=== PATIENT | female | born 1995 | race Hispanic/Latino ===

== ENCOUNTER 2017-11-17 05:53 | Day surgery (SDC) | payer OTHER ==
[2017-11-14 09:57] VITALS: BMI 29.2
[2017-11-17] MEDS ORDERED: cefOXitin IV 1 gm in Dextrose 1 GM/50 ML BAG IVPB ONE (07:31)
[2017-11-17] MEDS ORDERED: cefOXitin IV 2 gm in Dextrose 0 GM/0 ML BAG IVPB ONE (07:31)
[2017-11-17] MEDS ORDERED: Bupivacaine 0.25% 20 ML INJ IJ ONE (07:59)
[2017-11-17] MEDS ORDERED: Midazolam 2 MG/2 ML VIAL ONE (08:16)
[2017-11-17] MEDS ORDERED: Propofol 10 mg/ml Inj (20 ML) ONE (08:16)
[2017-11-17] MEDS: ceFAZolin IV 1 gm in Dextrose 2 GM/100 ML BAG IVPB ONE ×2 (08:30→08:50)
[2017-11-17] MEDS ORDERED: Rocuronium 10 mg/ml (5 ml) ONE (08:36)
[2017-11-17] MEDS ORDERED: Succinylcholine Chloride 20 mg/ml Syr (5 ml) IV ONE (08:36)
[2017-11-17] MEDS ORDERED: Neostigmine Methylsulfate 3mg/3ml Syringe IV ONE (10:01)
--- NOTE | 2017-11-17 10:10 | PCM.SURG1 ---
Surgeon's Initial Post Op Note - Surgeon's Notes Surgeon: Delia Mccormick MD Biomedical Instrument Technician: Gavin Phipps MD Type of Anesthesia: General Endo, General LMA Pre-Operative Diagnosis: Chronic Pelvic Pain, Right ovarian cyst, Lost Intrauterine device Operative Findings: 10 week size uteurs, noral utuers, rihgt ovarian cyst with endometriotic implant in posteior cul de sac, iud strings in cervical canal, bowle adesions left side wall and right tubal adhesion to uterine wall Post-Operative Diagnosis: same as above, endometrisoos, adhesions Operation Performed: Operative laparascopy, right ovariany cystectomy, excision and ablation of enodmetriosis, hystersoic dilation , llysis of adhesions Specimen/Specimens Removed: right ovarian cyst, enodmetriotic implant biopoys from cul de sac Estimated Blood Loss: EBL {In ML}: 25 Blood Products Given: N/A Drains Used: No Drains Post-Op Condition: Good Date of Surgery/Procedure: 11/17/17 Time of Surgery/Procedure: 08:00
[2017-11-17] MEDS ORDERED: HYDROmorphone 0.5 mg/0.5 ml ISec IVP PRN (10:18)
[2017-11-17] MEDS ORDERED: DiphenhydrAMINE 50 mg/ml Inj IVP STA (10:41)
[2017-11-17 12:06] VITALS: RESP 18
[2017-11-17 14:29] VITALS: BP 103/55; PULSE 92; TEMP 98; O2SAT 100
--- NOTE | 2017-11-18 20:53 | OP ---
PROCEDURE DATE: 11/17/2017 PREOPERATIVE DIAGNOSIS: Chronic pelvic pain, right ovarian cyst, loss of intrauterine device. POSTOPERATIVE DIAGNOSIS: Chronic pelvic pain, right ovarian cyst, loss of intrauterine device, endometriosis, pelvic adhesions. OPERATION PERFORMED: Operative laparoscopy, right ovarian cystectomy, excision and ablation of endometriosis, hysteroscopic dilation with confirmed placement of intrauterine device, lysis of adhesions. SURGEON: Delia Mccormick MD. FINANCIAL PLANNING ADVISOR: Gavin Phipps MD. OPERATIVE FINDINGS: A 10-week size uterus, right ovarian cyst with endometrial implants in posterior cul-de-sac. IUD strings not at cervical os, however, upon hysteroscopy visualized. Bowel adhesions on left sidewall and right tubal adhesions to the uterine wall. Dr. Gavin Phipps, surgical instruments inspector, was present for the entire case and essential in gaining laparoscopic entry, confirming placement, entry in all trocars, removing the cyst and the endometriosis, obtaining hemostasis and responsible for removing all instruments, closing and performing hemostasis. TYPE OF ANESTHESIA: General endotracheal. ESTIMATED BLOOD LOSS: 25 mL. BLOOD PRODUCTS: None. COMPLICATIONS: None. DESCRIPTION OF PROCEDURE: The patient was taken to the operating room where she was given general anesthesia. Once it was found to be adequate, she was placed on the operating table in dorsal supine position with legs supported using stirrups. The patient was then prepped and draped in the usual sterile fashion. A time-out confirmed correct patient and correct procedure. A Garcia catheter was then inserted in the urethra to drain the bladder. Roberts retractor was placed in the anterior and posterior fornix of the vagina and the cervix was adequately visualized. There was no IUD strings noted at the os. The cervix was carefully dilated. Hysteroscope was then inserted and the intrauterine device was then noted to be in place. Following this, the surgeon then regloved. Attention was then turned to the abdomen where a 5 mm skin incision was made in the infraumbilical fold after 0.25 Marcaine with local anesthesia was given. The skin was then tented up using towel clips and a Veress needle was then inserted after the skin incision was made with the scalpel. The confirmation of the Veress needle was then inserted with normal saline followed by insufflation of the gas with normal opening pressure. The abdomen was then insufflated to a pressure of 15 mmHg. Along this, the Veress needle was then removed and a 5 mm trocar under direct visualization then was inserted with confirmation of the laparoscope. There was good hemostasis noted. The abdomen and the pelvis was then inspected as noted above with the cyst on the right ovary, tubal adhesions, bowel adhesions. Following that, a right lower quadrant 5 mm skin incision was made after administration of 0.25% Marcaine and the 5 mm skin incision was made in the left lower quadrant after administration of Marcaine. The trocars were then inserted under direct visualization, and there was good hemostasis noted. Attention was then turned to the right ovary which revealed the findings as above. The right ovarian cyst appeared to be enlarged approximately 5 cm was mobilized out of the pelvis using a laparoscopic Erika. A small incision was made with the electrocautery. The suction deputy chief counsel was the inserted and the cyst was then deflated. The incision was then extended using the electrocautery, and at that point, the dissection of the ovarian cyst was performed using hydrodissection and blunt dissection. Entry into the cyst was created and dissected and the suction was used to drain the scant fluid or to drain the fluid from the cyst. A large portion of the cyst was then removed and coagulated with and was removed through the laparoscopic port site in a continued manner. At this time, the cyst wall was identified and removed using blunt dissection and counter traction. The ovarian bed was then irrigated and dried. There was slight oozing noted at the edge of the ovary. Obtain hemostasis using pressure minimal electrocautery. The pelvis was then irrigated and hemostasis was assured. Following this, the left bowel adhesions noted to the wall were then carefully dissected in the clear space of the peritoneum. Following this, the left right fallopian tube which was adherent to the uterus was then carefully dissected with the blunt probe, and there was good hemostasis noted. There was endometriotic implants which was noted to be in the posterior cul-de-sac. A biopsy was obtained and the lesions were cauterized using bipolar with a normal saline. The abdomen and pelvis were then copiously irrigated with good hemostasis noted. Hemostasis was assured. All instruments were removed under direct visualization including the port site. There was good hemostasis noted. The abdomen was then desufflated. All skin incisions were closed with 3-0 Monocryl in a running subcuticular fashion. Steri-Strips were applied with Ioban dressings. At the end of the procedure, all needle, sponge and instrument counts were noted and correct x2. The patient tolerated the procedure well and was transferred to the recovery room in stable condition. Delia Mccormick MD
== END 2017-11-17 14:25 | disposition home or self-care (01) ==
LOC: C.SDS 05:53
PROVIDERS: ATTEND Obstetrics & Gynecology
DX: N83.201 Unspecified ovarian cyst, right side (principal); R10.2 Pelvic and perineal pain; G89.29 Other chronic pain
CPT/HCPCS: 58563; 58662; 88305; J0690; J1100; J1885; J2001; J2250; J2405; J2704; J2710; J3010